=== PATIENT | female | born 1960 | race Hispanic/Latino ===

== ENCOUNTER 2017-05-13 16:09 | Outpatient (CLI) | payer MEDICAID ==
--- NOTE | 2017-05-14 09:57 | XRay Report ---
Cervical spine series 5 views. History: Neck pain. Findings: The vertebral body heights and disc spaces are well-maintained. Alignment is normal. The neural foramina are patent. The odontoid is intact. There is no prevertebral soft tissue edema. Impression: Normal study.
--- NOTE | 2017-05-14 09:58 | XRay Report ---
Left knee 3 views. History: Knee pain. Findings: There is marked narrowing of the joint space especially medially with mild secondary hypertrophic changes at the articular margins. There is narrowing of the patellofemoral joint. Bony mineralization is normal. No soft tissue abnormality is seen. Impression: Moderate to severe osteoarthritis.
--- NOTE | 2017-05-14 09:59 | XRay Report ---
Lumbar spine series 5 views. History: Back pain. Findings: The vertebral body heights are well-maintained. Alignment is normal. There is mild narrowing of the disc space at L5-S1. Bony mineralization is normal. The pedicles are intact. Impression: Mild discogenic changes at L5-S1.
== END 2017-05-13 16:10 | disposition home or self-care (01) ==
LOC: XRAY 16:09
PROVIDERS: ATTEND Physical Medicine & Rehabilitation
DX: M17.12 Unilateral primary osteoarthritis, left knee (principal); M51.87 Other intervertebral disc disorders, lumbosacral region; M54.2 Cervicalgia
CPT/HCPCS: 72050; 72110

== ENCOUNTER 2017-07-04 21:16 | Emergency (ER) | payer MEDICAID ==
[2017-07-04 23:29] LABS: Bacteria,Urine 1+ /HPF (Negative); Bilirubin,Urine NEG (Negative); Blood,Urine NEG (Negative); Ketones,Urine NEG (Negative); Leukocyte Esterase,Urine TR (Negative); Mucus,Urine FEW /HPF; Nitrite,Urine POS (Negative); Protein,Urine <15 mg/dL mg/dL (Negative)
[2017-07-04 23:48] LABS: Hematocrit 39.4 % (30.3-42.9); Hemoglobin 13.2 gm/dl (10.1-14.3); Mean Corpuscular HGB Conc 33 % (30-34); Mean Corpuscular Hemoglobin 33 pg (28-32); Mean Corpuscular Volume 99 fl (79-97); Platelet Count 102 K/mm3 (140-440); Red Blood Count 3.96 M/mm3 (3.65-5.03); Red Cell Distribution Width 14.2 % (13.2-15.2); White Blood Count 5.9 K/mm3 (4.5-11.0)
[2017-07-05 00:27] LABS: Alanine Aminotransferase 42 units/L (7-56); Albumin 3.2 g/dL (3.9-5); Albumin/Globulin Ratio 0.6 %; Alkaline Phosphatase 90 units/L (35-129); Anion Gap 16 mmol/L; Blood Urea Nitrogen 8 mg/dL (7-17); Calcium 8.6 mg/dL (8.4-10.2); Carbon Dioxide 22 mmol/L (22-30); Chloride 104.1 mmol/L (98-107); Glucose 128 mg/dL (65-100); Lipase 26 units/L (13-60); Potassium 3.5 mmol/L (3.6-5.0); Sodium 139 mmol/L (137-145); Total Protein 8.2 g/dL (6.3-8.2)
[2017-07-05] MEDS ORDERED: PROVENTIL IH ONE (06:30)
[2017-07-05] MEDS ORDERED: NACL ONE (07:21)
--- NOTE | 2017-07-05 08:26 | Emergency Department Report ---
ED General Adult HPI - General Chief complaint: Weakness Stated complaint: WEAKNESS Time Seen by Provider: 07/05/17 06:08 Source: patient, EMS Mode of arrival: Wheelchair Limitations: No Limitations - History of Present Illness Initial comments: Patient is a 56-year-old female past medical history of hep C and HIV with a normal CD4 count undetectable viral load and blood. Who presents with weakness that has actually worsened for the last 4 days. She complains of pain meds on and off throughout her body that is a 4 out of 10 as an achy type of pain nothing makes it better or worse. It radiates all throughout her body. 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 Patient denies having any chest pain. But she states that she has some slight shortness of breath. Severity scale (0 -10): 7 - Related Data Home Medications Medication Instructions Recorded Confirmed Last Taken No Known Home Medications [No 07/05/17 07/05/17 Unknown Reported Home Medications] Allergies Allergy/AdvReac Type Severity Reaction Status Date / Time No Known Allergies Allergy Unverified 07/04/17 21:51 ED Review of Systems ROS: Stated complaint: WEAKNESS Other details as noted in HPI Constitutional: weakness. denies: chills, fever Eyes: denies: eye pain, eye discharge, vision change ENT: denies: ear pain, throat pain Respiratory: shortness of breath. denies: cough, wheezing Cardiovascular: denies: chest pain, palpitations Endocrine: no symptoms reported Gastrointestinal: denies: abdominal pain, nausea, diarrhea Genitourinary: other (dark urine). denies: urgency, dysuria, discharge Musculoskeletal: myalgia. denies: back pain, joint swelling, arthralgia Skin: denies: rash, lesions Neurological: weakness (generalized ). denies: headache, paresthesias Psychiatric: denies: anxiety, depression Hematological/Lymphatic: denies: easy bleeding, easy bruising ED Past Medical Hx - Past Medical History Hx Liver Disease: Yes Hx Arthritis: Yes Hx Headaches / Migraines: Yes Hx Psychiatric Treatment: Yes (PTSD,ADD) Hx Asthma: Yes Hx COPD: Yes Hx HIV: Yes Additional medical history: HEPATITIS C, HIV 9YEARS-NORMAL CD4 - Surgical History Past Surgical History?: No Additional Surgical History: A - Social History Smoking Status: Current Every Day Smoker Substance Use Type: None - Medications Home Medications: Home Medications Medication Instructions Recorded Confirmed Last Taken Type No Known Home Medications [No 07/05/17 07/05/17 Unknown History Reported Home Medications] ED Physical Exam - General Limitations: No Limitations General appearance: alert, in no apparent distress, other (sleepy) - Head Head exam: Present: atraumatic, normocephalic - Eye Eye exam: Present: normal appearance - ENT ENT exam: Present: mucous membranes moist - Neck Neck exam: Present: normal inspection - Respiratory Respiratory exam: Present: normal lung sounds bilaterally. Absent: respiratory distress - Cardiovascular Cardiovascular Exam: Present: regular rate, normal rhythm. Absent: systolic murmur, diastolic murmur, rubs, gallop - GI/Abdominal GI/Abdominal exam: Present: soft, normal bowel sounds - Extremities Exam Extremities exam: Present: normal inspection - Back Exam Back exam: Present: normal inspection - Neurological Exam Neurological exam: Present: alert, oriented X3, CN II-XII intact - Psychiatric Psychiatric exam: Present: normal affect, normal mood - Skin Skin exam: Present: warm, dry, intact, normal color. Absent: rash ED Course Vital Signs 07/04/17 07/05/17 07/05/17 21:41 03:51 04:18 Temperature 98.6 F Pulse Rate 63 Respiratory 20 14 12 Rate Blood Pressure 129/80 Blood Pressure [Left] O2 Sat by Pulse 100 100 Oximetry 07/05/17 07/05/17 07/05/17 04:30 04:31 04:45 Temperature 97.8 F Pulse Rate 66 64 73 Respiratory 16 14 20 Rate Blood Pressure 126/74 126/74 Blood Pressure 123/78 [Left] O2 Sat by Pulse 100 100 99 Oximetry 07/05/17 07/05/17 07/05/17 05:00 05:15 05:30 Temperature Pulse Rate 65 59 L 62 Respiratory 25 H 23 22 Rate Blood Pressure 110/66 118/62 117/54 Blood Pressure [Left] O2 Sat by Pulse 100 100 99 Oximetry 07/05/17 07/05/17 07/05/17 05:45 06:00 06:15 Temperature Pulse Rate 65 77 65 Respiratory 22 16 19 Rate Blood Pressure 122/56 122/67 111/60 Blood Pressure [Left] O2 Sat by Pulse 99 98 97 Oximetry 07/05/17 07/05/17 07:00 07:45 Temperature 98.9 F Pulse Rate 63 Respiratory 23 Rate Blood Pressure 106/56 Blood Pressure [Left] O2 Sat by Pulse 95 Oximetry - Reevaluation(s) Reevaluation #1: 07/05/17 08:28 Reevaluate patient discussed that she will likely go home. If her CT scan shows no abnormalities. Patient agrees with plan. ED Medical Decision Making - Lab Data Result diagrams: 07/04/17 23:24 07/04/17 23:24 Lab Results 07/04/17 07/04/17 07/04/17 Range/Units 22:25 23:24 23:24 WBC 5.9 (4.5-11.0) K/mm3 RBC 3.96 (3.65-5.03) M/mm3 Hgb 13.2 (10.1-14.3) gm/dl Hct 39.4 (30.3-42.9) % MCV 99 H (79-97) fl MCH 33 H (28-32) pg MCHC 33 (30-34) % RDW 14.2 (13.2-15.2) % Plt Count 102 L (140-440) K/mm3 Sodium Cancelled Potassium Cancelled Chloride Cancelled Carbon Dioxide Cancelled Anion Gap Cancelled BUN Cancelled Creatinine Cancelled Estimated GFR Cancelled BUN/Creatinine Ratio Cancelled Glucose Cancelled Calcium Cancelled Total Bilirubin (0.1-1.2) mg/dL AST (5-40) units/L ALT (7-56) units/L Alkaline Phosphatase (35-129) units/L Troponin T < 0.010 (0.00-0.029) ng/mL NT-Pro-B Natriuret Pep (0-900) pg/mL Total Protein (6.3-8.2) g/dL Albumin (3.9-5) g/dL Albumin/Globulin Ratio % Lipase (13-60) units/L TSH (0.270-4.200) mlU/mL Urine Color Yellow (Yellow) Urine Turbidity Clear (Clear) Urine pH 6.0 (5.0-7.0) Ur Specific [place] 1.009 (1.003-1.030) Urine Protein <15 mg/dl (Negative) mg/dL Urine Glucose (UA) 150 (Negative) mg/dL Urine Ketones Neg (Negative) mg/dL Urine Blood Neg (Negative) Urine Nitrite Pos (Negative) Urine Bilirubin Neg (Negative) Urine Urobilinogen 4.0 (<2.0) mg/dL Ur Leukocyte Esterase Tr (Negative) Urine WBC (Auto) 3.0 (0.0-6.0) /HPF Urine RBC (Auto) 1.0 (0.0-6.0) /HPF U Epithel Cells (Auto) < 1.0 (0-13.0) /HPF Urine Bacteria (Auto) 1+ (Negative) /HPF Urine Mucus Few /HPF 07/04/17 07/05/17 07/05/17 Range/Units 23:24 06:50 06:50 WBC (4.5-11.0) K/mm3 RBC (3.65-5.03) M/mm3 Hgb (10.1-14.3) gm/dl Hct (30.3-42.9) % MCV (79-97) fl MCH (28-32) pg MCHC (30-34) % RDW (13.2-15.2) % Plt Count (140-440) K/mm3 Sodium 139 Potassium 3.5 L Chloride 104.1 Carbon Dioxide 22 Anion Gap 16 BUN 8 Creatinine 0.4 L Estimated GFR > 60 BUN/Creatinine Ratio 20.00 Glucose 128 H Calcium 8.6 Total Bilirubin 1.10 (0.1-1.2) mg/dL AST 56 H (5-40) units/L ALT 42 (7-56) units/L Alkaline Phosphatase 90 (35-129) units/L Troponin T (0.00-0.029) ng/mL NT-Pro-B Natriuret Pep 84.51 (0-900) pg/mL Total Protein 8.2 (6.3-8.2) g/dL Albumin 3.2 L (3.9-5) g/dL Albumin/Globulin Ratio 0.6 % Lipase 26 (13-60) units/L TSH 0.562 (0.270-4.200) mlU/mL Urine Color (Yellow) Urine Turbidity (Clear) Urine pH (5.0-7.0) Ur Specific [place] (1.003-1.030) Urine Protein (Negative) mg/dL Urine Glucose (UA) (Negative) mg/dL Urine Ketones (Negative) mg/dL Urine Blood (Negative) Urine Nitrite (Negative) Urine Bilirubin (Negative) Urine Urobilinogen (<2.0) mg/dL Ur Leukocyte Esterase (Negative) Urine WBC (Auto) (0.0-6.0) /HPF Urine RBC (Auto) (0.0-6.0) /HPF U Epithel Cells (Auto) (0-13.0) /HPF Urine Bacteria (Auto) (Negative) /HPF Urine Mucus /HPF - EKG Data -: EKG Interpreted by Me - EKG Data 07/05/17 08:29 EKG shows normal sinus rhythm no ST segment elevations normal axis and no T- wave inversions. - Radiology Data Radiology results: report reviewed, image reviewed Chest x-ray shows no acute pulmonary injury. CT chest angiogram shows no pulmonary embolism - Medical Decision Making Chief medical diagnosis: Hypothyroidism Differential medical diagnosis: Hypokalemia, hyponatremia, hypoglycemia, non- STEMI, pneumonia, urinary tract infection I will get CBC, CMP, EKG, chest x-ray, troponin, breathing treatment and CT scan , urinalysis The patient's findings show no metabolic abnormality and no signs of infection also and patient home for follow-up for PCP. Patient agrees the plan additional verbal discharge instructions were given. Critical care attestation.: If time is entered above; I have spent that time in minutes in the direct care of this critically ill patient, excluding procedure time. ED Disposition Clinical Impression: Generalized weakness Disposition: DC-01 TO HOME OR SELFCARE Is pt being admited?: No Does the pt Need Aspirin: No Condition: Stable Instructions: Weakness (ED) Referrals: PRIMARY CARE, [Primary Care Provider] - 3-5 Days
--- NOTE | 2017-07-05 09:08 | Cat Scan Report ---
FINAL REPORT EXAM: CT ANGIO CHEST HISTORY: evaluate for PE TECHNIQUE: CT imaging obtained through the chest in pulmonary angiographic phase following intravenous administration of contrast. Transaxial, Coronal and sagittal reformats with maximal intensity projections are provided. PRIORS: None. FINDINGS: Normal caliber main pulmonary artery. Well opacified pulmonary arterial tree. No pulmonary embolism. No pericardial effusion. Thoracic aorta is normal in course and caliber. No periaortic fluid or stranding. No pneumothorax, effusion or focal airspace disease. The central airways are patent. No bronchiectasis. Imaged portion of the upper abdomen is remarkable for splenomegaly measuring up to approximately 17 cm. Cholecystectomy also noted. Nodular contour of the liver with prominent umbilical vein. Calcified granuloma noted in the right hepatic dome. The superficial soft tissues are unremarkable. No acute bony abnormality or worrisome osseous lesions identified. IMPRESSION: No pulmonary embolism or other acute finding. Cirrhotic morphology of the liver with sequela of portal hypertension.
--- NOTE | 2017-07-05 09:15 | XRay Report ---
ROUTINE CHEST, TWO VIEWS: HISTORY: Cough, shortness of breath. The trachea, heart, mediastinal contour, lung rao and bony thorax are unremarkable. IMPRESSION: Unremarkable chest x-ray.
[2017-07-05 09:58] VITALS: BP 126/67
== END 2017-07-05 09:39 | disposition home or self-care (01) ==
LOC: ED 21:16
DX: R53.1 Weakness (principal); M19.90 Unspecified osteoarthritis, unspecified site; G43.909 Migraine, unspecified, not intractable, without status migrainosus; J44.9 Chronic obstructive pulmonary disease, unspecified; F17.210 Nicotine dependence, cigarettes, uncomplicated
CPT/HCPCS: 36415; 71020; 71275; 80053; 81001; 83690; 83880; 84443; 84484; 85027; 93005; 93010; 99285; Q9967